=== PATIENT | male | born 1970 | race Caucasian/White ===

== ENCOUNTER 2019-04-12 09:38 | Emergency (ER) | payer MEDICAID ==
[~2019-04-12] VITALS: Ht 177.8 cm; Wt 116.1 kg
--- NOTE | 2019-04-12 09:51 | NUR ---
PT ELLIOTT C/O GEN WEAKNESS, ANXIETY "I GOT EVICTED FROM MY HOUSE IM BASICALLY HOMELESS, PT IS AAOX3, NOT IN RESPIRATORY DISTRES, HOOKED TO MONITOR, KEPT RESTED AND COMFORTABLE, WILL CONTINUE TO MONITOR.
[2019-04-12] MEDS ORDERED: LORAZEPAM 1 MG TABLET ONE ×2 (10:18→16:34)
[2019-04-12] MEDS ORDERED: LORAZEPAM 1 MG TABLET PO ONE ×2 (10:30→17:00)
--- NOTE | 2019-04-12 11:25 | NUR ---
SYLVIA HUERTAS AT BEDSIDE FOR EVAL.
--- NOTE | 2019-04-12 11:36 | NUR ---
ER PHLEB AT BEDSIDE FOR BLOOD DRAW.
[2019-04-12 11:42] LABS: BASOPHILS # (AUTO) 0.1 /CMM (0.0-0.2); BASOPHILS % (AUTO) 1.1 % (0.0-2.0); EOSINOPHILS % (AUTO) 1.3 % (0.0-6.0); HEMATOCRIT 44 % (39-51); HEMOGLOBIN 14.6 g/dL (13.5-17.5); LYMPHOCYTES # (AUTO) 2.3 /CMM (0.8-4.8); LYMPHOCYTES % (AUTO) 17.1 % (20.0-44.0); MEAN CORPUSCULAR HGB CONC 33 g/dl (31.0-36.0); MEAN CORPUSCULAR VOLUME 90 fL (80-96); MONOCYTES # (AUTO) 0.6 /CMM (0.1-1.30); MONOCYTES % (AUTO) 4.5 % (2.0-12.0); NEUTROPHILS # (AUTO) 10.1 /CMM (1.8-8.9); PLATELET COUNT (AUTO) 423 /CMM (150-450); RED BLOOD CELL COUNT(AUTO) 4.88 MIL/uL (4.5-6.0); WHITE BLOOD COUNT (AUTO) 13.2 K/uL (4.3-11.0)
[2019-04-12 11:49] LABS: CALCIUM, SERUM 9.6 mg/dL (8.5-10.1); CARBON DIOXIDE 29 mmol/L (21-32); CHLORIDE 98 mmol/L (98-107); CREATININE 0.9 mg/dL (0.6-1.3); GLUCOSE 109 mg/dL (74-106); POTASSIUM 3.2 mmol/L (3.5-5.1); SODIUM SERUM 138 mmol/L (136-145); UREA NITROGEN, BLOOD 5 mg/dL (7-18)
--- NOTE | 2019-04-12 11:50 | NUR ---
FOOD TRAY PROVIDED.
[2019-04-12 11:57] LABS: ACETAMINOPHEN 0 ug/ml (10-30); ALANINE AMINOTRANSFERASE 22 U/L (12-78); ALBUMIN 3.8 g/dL (3.4-5.0); ALCOHOL, BLOOD < 3 mg/dL (0-0); ALKALINE PHOSPHATASE 121 U/L (46-116); ASPARTATE AMINOTRANSFERASE 26 U/L (15-37); BILIRUBIN,DIRECT 0.2 mg/dL (0.0-0.2); BILIRUBIN,TOTAL 0.9 mg/dL (0.2-1.0); TOTAL PROTEIN, SERUM 8.7 g/dL (6.4-8.2)
--- NOTE | 2019-04-12 12:06 | NUR ---
Social service consult requested by Dr. Young for homelessness and suicidal ideations with a plan to " drink himself to ." Per H&P, Pt. is 48-year-old male with history of depression, currently presenting with feelings of anxiety and concern for new homelessness. Pt. was brought to the ED by police. KIYA me with the pt. bedside. Pt. is alert and oriented x 4. Pt. was sitting upright and watching TV when SW approached the pt. Pt. appearance is unkempt, disheveled and has a foul odor. Pt. 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 Pt. stated he has been living in the apartment for 3 years and stopped paying rent for a long time. Pt. is now homeless and has nowhere to go. Pt. is feeling anxious and stated, " I want to check myself into the mental hospital, or else I will drink myself to ." Pt. drinks alcohol on a regular basis. Pt. states he has a diagnosis of Depression and Anxiety and is not taking any psychotropic medications. KIYA to refer pt. to [facility] for voluntary psychiatric hospitalization. KIYA contacted Robe at [facility] regarding pt' requesting psychiatric hospitalization. KIYA gave Robe pt's insurance information and he will follow up with KIYA in a few minutes.
[2019-04-12 12:30] LABS: APPEARANCE,URINE Clear (CLEAR); BILIRUBIN,URINE MODERATE (NEGATIVE); BLOOD, URINE Negative Ery/uL (NEGATIVE); KETONES,URINE 40 (NEGATIVE); LEUKOCYTE ESTERASE ,URINE Negative (NEGATIVE); NITRITE, URINE Negative (NEGATIVE); PROTEIN,URINE 100 mg/dl (NEGATIVE); UGLUCOSE 100 MG/DL mg/dL (NEGATIVE)
--- NOTE | 2019-04-12 12:31 | NUR ---
URINE SPECIMEN COLLECTED AND SENT TO LAB.
[2019-04-12 12:32] LABS: BACTERIA,URINE Rare /HPF (None Seen); COLOR,URINE AMBER (YELLOW); RBC,URINE 0-2 /HPF (0-2); SQUAMOUS EPITHELIAL CELL,UR Rare /HPF (None Seen); WBC,URINE 0-2 /HPF (0-3)
[2019-04-12 12:57] LABS: LYMPHOCYTES % (MANUAL) 19 % (16-48); MONOCYTES % (MANUAL) 4 % (0-11.0); NEUTROPHILS % (MANUAL) 77 (42-76)
--- NOTE | 2019-04-12 13:12 | NUR ---
KIYA faxed clinical referral packet to [facility] intake .
--- NOTE | 2019-04-12 13:49 | NUR ---
KIYA contacted [facility] intake and spoke with Roman who informed KIYA he did receive the fax and will send the clinicals to nursing supervisor [employer] at [place] and follow up with KIYA within 45 minutes to an hour.
--- NOTE | 2019-04-12 14:43 | NUR ---
KIYA received a call from Roman at [facility] intake informing SW that per nursing chemical lab supervisor Kecia at [place] pt's Potassium is at 3.2 and needs to be at 4. KIYA updated RN Heriberto in ED who will speak with the doctor regarding increasing potassium level.
[2019-04-12] MEDS ORDERED: POTASSIUM CHLORIDE 20 MEQ TAB.PRT.SR PO ONE ×2 (15:00→15:01)
--- NOTE | 2019-04-12 16:19 | NUR ---
KIYA received a call from Kita from [facility] intake informing KIYA pt. has been accepted. KIYA transferred call to ED to give report information.
--- NOTE | 2019-04-12 16:28 | NUR ---
REPORT GIVEN TO KIARA MORENO OF [facility] FOR PT TRANSFER.
--- NOTE | 2019-04-12 16:37 | NUR ---
[facility][id number] [id number]
--- NOTE | 2019-04-12 16:50 | NUR ---
FOOD TRAY PROVIDED
--- NOTE | 2019-04-12 19:06 | NUR ---
REPORT GIVEN TO EMT FOR PT TRANSFER TO [facility].
[2019-04-12 19:16] VITALS: BP 148/89
== END 2019-04-12 19:17 ==
LOC: ER 09:42
DX: R45.851 Suicidal ideations (principal); F32.9 Major depressive disorder, single episode, unspecified; Z59.0 Homelessness; Z60.2 Problems related to living alone
CPT/HCPCS: 36415; 80048; 80076; 80305; 80307; 80329; 81001; 85025; 99285; G0480; 81000-TC